=== PATIENT | male | born 1965 | race Caucasian/White ===

== ENCOUNTER 2025-02-19 11:25 | Emergency (ER) | payer OTHER | END 2025-02-19 13:23 | disposition home or self-care (01) | LOC: DL.ED 11:25 | DX: I80.02 Phlebitis and thrombophlebitis of superficial vessels of left lower extremity (principal); I48.91 Unspecified atrial fibrillation; Z88.8 Allergy status to other drugs, medicaments and biological substances; Z79.01 Long term (current) use of anticoagulants; Z95.0 Presence of cardiac pacemaker; Z87.891 Personal history of nicotine dependence | CPT/HCPCS: 36415; 85379; 99283 ==